=== PATIENT | female | born 1940 | race Caucasian/White ===

== ENCOUNTER 2018-08-18 13:03 | Inpatient (IN) | payer MEDICARE ==
[~2018-08-18] VITALS: Ht 152.4 cm; Wt 50.3 kg
[2018-08-18] MEDS ORDERED: SODIUM CHLORIDE FLUSH 10ML SYR IVF ONE (13:30)
[2018-08-18 13:56] LABS: BASOPHILS # (AUTO) 0.04 x10^3/uL (0-0.1); BASOPHILS % (AUTO) 1 % (0-1); EOSINOPHILS # (AUTO) 0.06 x10^3/uL (0-0.4); EOSINOPHILS % (AUTO) 2 % (1-7); LYMPHOCYTES # (AUTO) 1.03 x10^3/uL (1-3.4); LYMPHOCYTES % (AUTO) 26 % (22-44); MD NO; MEAN CORPUSCULAR HEMOGLOBIN 31.3 pg (27.0-34.8); MEAN CORPUSCULAR HGB CONC 33.8 g/dL (32.4-35.8); MEAN CORPUSCULAR VOLUME 92.4 fL (80-100); MEAN PLATELET VOLUME 7.8 fL (7.4-10.4); MONOCYTES % (AUTO) 10 % (2-9); NEUTROPHILS # (AUTO) 2.43 x10^3/uL (1.8-6.8); NEUTROPHILS % (AUTO) 61 % (42-75); PLATELET COUNT 173 x10^3/uL (130-400); RED BLOOD COUNT 2.98 x10^6/uL (3.82-5.3)
[2018-08-18 13:59] LABS: ALANINE AMINOTRANSFERASE 20 U/L (12-78); ALBUMIN 3.1 g/dL (3.4-5.0); ANION GAP 8 mmol/L (5-15); CALCIUM 7.9 mg/dL (8.5-10.1); CHLORIDE 100 mmol/L (98-107); CREATININE 1.06 mg/dL (0.55-1.02)
[2018-08-18 14:04] LABS: ALKALINE PHOSPHATASE 57 U/L (45-117); BILIRUBIN,TOTAL 0.3 mg/dL (0.2-1.0); TOTAL PROTEIN 6.4 g/dL (6.4-8.2); TROPONIN I < 0.015 ng/mL (0.000-0.045)
[2018-08-18] MEDS ORDERED: POTASSIUM CHLORIDE 20 MEQ TAB.ER.PRT PO ONE (14:30)
[2018-08-18 14:59] LABS: INTERNATIONAL NORMALIZED RATIO 1.66 (0.93-1.1); PROTHROMBIN TIME 17.1 Seconds (9.6-11.5)
[2018-08-18] MEDS ORDERED: POTASSIUM CHLORIDE 20 MEQ TAB.ER.PRT ONE (15:05)
[2018-08-18] MEDS ORDERED: LORazepam 0.5MG TABLET ONE (15:05)
[2018-08-18] MEDS ORDERED: SODIUM CHLORIDE FLUSH 10ML SYR IVF PRN (15:30)
[2018-08-18] MEDS ORDERED: LORazepam 1MG TABLET PO ONE (15:30)
[2018-08-18] MEDS ORDERED: EZET10TA18 PO (15:57)
[2018-08-18] MEDS ORDERED: ONDANSETRON 2MG/ML, 2ML IVPush PRN (16:00)
[2018-08-18] MEDS ORDERED: ACETAMINOPHEN 325 MG TABLET PO PRN (16:00)
[2018-08-18] MEDS ORDERED: hydrALAzine 20 MG/ML, 1ML IVPush PRN (16:00)
[2018-08-18] MEDS ORDERED: TEMAZEPAM 15 MG CAPSULE PO PRN (16:00)
[2018-08-18] MEDS ORDERED: ISOS30TA21 PO (16:03)
[2018-08-18] MEDS ORDERED: PANT40TA3 PO (16:03)
[2018-08-18] MEDS ORDERED: NITROGLYCERIN (16:03)
[2018-08-18] MEDS ORDERED: CARV-39 PO (16:03)
[2018-08-18] MEDS ORDERED: DILT120T3 PO (16:03)
[2018-08-18] MEDS ORDERED: FURO20TA3 PO (16:03)
[2018-08-18] MEDS ORDERED: HYDR25TA6 PO (16:03)
[2018-08-18] MEDS ORDERED: HYDR-3341 PO (16:03)
[2018-08-18] MEDS ORDERED: ZOLP10TA PO (16:03)
[2018-08-18] MEDS ORDERED: DABI150C PO (16:03)
[2018-08-18] MEDS ORDERED: TELM80TA PO (16:12)
[2018-08-18 17:00] VITALS: BP 120/68
[2018-08-18] MEDS ORDERED: METOPROLOL 1 MG/ML, 5ML IVPush PRN (17:00)
[2018-08-18] MEDS: CARVEDILOL 3.125 MG TABLET PO SCH (18:41)
[2018-08-18] MEDS ORDERED: PLEASE ENTER ALLERGIES MC SCH (19:30)
[2018-08-18 20:12] LABS: MICROSCOPIC AUTO
[2018-08-18] MEDS: ZOLPIDEM 5MG TABLET PO PRN (20:19)
[2018-08-18] MEDS: EZETIMIBE 10 MG TABLET PO SCH (20:19)
[2018-08-18 20:21] LABS: TROPONIN I < 0.015 ng/mL (0.000-0.045)
[2018-08-18 20:48] VITALS: BP 95/50
[2018-08-18] MEDS: DABIGATRAN 75 MG CAPSULE PO SCH (20:50)
[2018-08-18 20:51] VITALS: BP 104/61
[2018-08-18] MEDS ORDERED: DABIGATRAN 150 MG CAPSULE PO SCH ×2 (21:00)
[2018-08-19 03:59] VITALS: BP 121/70
[2018-08-19 04:37] LABS: BASOPHILS # (AUTO) 0.02 x10^3/uL (0-0.1); BASOPHILS % (AUTO) 1 % (0-1); EOSINOPHILS # (AUTO) 0.09 x10^3/uL (0-0.4); EOSINOPHILS % (AUTO) 2 % (1-7); LYMPHOCYTES # (AUTO) 1.27 x10^3/uL (1-3.4); LYMPHOCYTES % (AUTO) 33 % (22-44); MD NO; MEAN CORPUSCULAR HEMOGLOBIN 32.1 pg (27.0-34.8); MEAN CORPUSCULAR HGB CONC 34.3 g/dL (32.4-35.8); MEAN CORPUSCULAR VOLUME 93.7 fL (80-100); MEAN PLATELET VOLUME 7.7 fL (7.4-10.4); MONOCYTES # (AUTO) 0.42 x10^3/uL (0.2-0.8); MONOCYTES % (AUTO) 11 % (2-9); NEUTROPHILS # (AUTO) 2.09 x10^3/uL (1.8-6.8); NEUTROPHILS % (AUTO) 54 % (42-75); PLATELET COUNT 167 x10^3/uL (130-400); RED BLOOD COUNT 2.99 x10^6/uL (3.82-5.3); RED CELL DISTRIBUTION WIDTH 15.8 % (9.6-15.2)
[2018-08-19 04:43] LABS: ALANINE AMINOTRANSFERASE 22 U/L (12-78); ALBUMIN 2.9 g/dL (3.4-5.0); ANION GAP 7 mmol/L (5-15); CHLORIDE 98 mmol/L (98-107); CREATININE 0.88 mg/dL (0.55-1.02)
[2018-08-19 04:48] LABS: ALKALINE PHOSPHATASE 53 U/L (45-117); BILIRUBIN,TOTAL 0.4 mg/dL (0.2-1.0); TOTAL PROTEIN 5.9 g/dL (6.4-8.2); TROPONIN I < 0.015 ng/mL (0.000-0.045)
[2018-08-19] MEDS: CARVEDILOL 3.125 MG TABLET PO SCH ×2 (05:21→15:07)
[2018-08-19 08:00] VITALS: BP 127/74
[2018-08-19] MEDS: PANTOPROZOLE 40MG TABLET PO SCH (09:38)
[2018-08-19] MEDS: DABIGATRAN 75 MG CAPSULE PO SCH ×2 (09:39→20:56)
[2018-08-19 11:45] VITALS: BP 130/87
[2018-08-19] MEDS ORDERED: ISOS30TA8 PO (12:19)
[2018-08-19] MEDS ORDERED: ALPR1TAB6 PO (12:19)
[2018-08-19] MEDS ORDERED: NITR0.4T SL (12:19)
[2018-08-19] MEDS ORDERED: ARTIFICIAL TEARS 15 DROP/ML BOTTLE EACHEYE PRN (12:30)
[2018-08-19 14:00] VITALS: BP 122/69
[2018-08-19 14:20] VITALS: BP 140/80
[2018-08-19] MEDS ORDERED: CARVEDILOL 25 MG TABLET ONE (15:03)
[2018-08-19] MEDS ORDERED: DILTIAZEM 125 MG in SODIUM CHLORIDE 0.9% 100 ML IV SCH (16:30)
[2018-08-19] MEDS: EZETIMIBE 10 MG TABLET PO SCH (20:55)
[2018-08-19] MEDS: ZOLPIDEM 5MG TABLET PO PRN (20:55)
[2018-08-19 21:47] VITALS: BP 116/66
[2018-08-20 00:25] VITALS: BP 96/52
[2018-08-20] MEDS ORDERED: DILTIAZEM 125 MG in SODIUM CHLORIDE 0.9% 100 ML IV SCH (02:00)
[2018-08-20] MEDS ORDERED: RANO500T2 PO (02:55)
[2018-08-20] MEDS ORDERED: ACET-1757 PO (02:55)
[2018-08-20] MEDS ORDERED: ALEN70TA5 PO (02:55)
[2018-08-20] MEDS ORDERED: OMEG1CAP34 PO (02:55)
[2018-08-20] MEDS ORDERED: CRAN500T2 PO (02:55)
[2018-08-20] MEDS ORDERED: MAGN70TA2 PO (02:55)
[2018-08-20] MEDS ORDERED: MULT-90 PO (02:55)
[2018-08-20] MEDS ORDERED: ASPI-515 PO (02:55)
[2018-08-20] MEDS ORDERED: VALS1TAB30 PO (02:55)
[2018-08-20] MEDS ORDERED: UBIQ75CA PO (02:55)
[2018-08-20] MEDS: CARVEDILOL 3.125 MG TABLET PO SCH (06:00)
[2018-08-20 06:31] VITALS: BP 113/74
[2018-08-20] MEDS ORDERED: CARVEDILOL 25 MG TABLET PO ONE (09:00)
[2018-08-20 09:55] VITALS: BP 121/73
[2018-08-20] MEDS: DABIGATRAN 75 MG CAPSULE PO SCH (09:56)
[2018-08-20] MEDS: PANTOPROZOLE 40MG TABLET PO SCH (09:56)
[2018-08-20 12:55] VITALS: BP 113/75
[2018-08-20] MEDS ORDERED: TELM80TA PO (13:07)
[2018-08-20] MEDS ORDERED: POTA20PA25 PO (13:07)
== END 2018-08-20 16:35 | disposition home or self-care (01) | DRG 291 ==
LOC: ED 15:13 → EDIP 15:14 → ED 15:18 → 5SO 16:36 → DCLOUNGE 08-20 15:45
PROVIDERS: ADMIT Hospitalist; ATTEND Internal Medicine
DX: I13.0 Hypertensive heart and chronic kidney disease with heart failure and stage 1 through stage 4 chronic kidney disease, or unspecified chronic kidney disease (principal); N17.0 Acute kidney failure with tubular necrosis; I50.33 Acute on chronic diastolic (congestive) heart failure; D68.59 Other primary thrombophilia; E87.6 Hypokalemia; I48.91 Unspecified atrial fibrillation; I25.10 Atherosclerotic heart disease of native coronary artery without angina pectoris; I65.21 Occlusion and stenosis of right carotid artery; I73.9 Peripheral vascular disease, unspecified; E78.5 Hyperlipidemia, unspecified; N18.2 Chronic kidney disease, stage 2 (mild); Z66 Do not resuscitate; Z80.1 Family history of malignant neoplasm of trachea, bronchus and lung; Z82.49 Family history of ischemic heart disease and other diseases of the circulatory system; Z95.5 Presence of coronary angioplasty implant and graft; Z79.01 Long term (current) use of anticoagulants; Z88.5 Allergy status to narcotic agent
CPT/HCPCS: 36415; 71045; 80053; 81001; 83735; 83880; 84100; 84443; 84484; 85025; 85610; 85730; 93005; 93306; 93880; 99285; G0378; J2405